=== PATIENT | female | born 1950 | race Caucasian/White ===

== ENCOUNTER 2016-09-27 01:35 | Emergency (ER) | payer OTHER ==
--- NOTE | 2016-09-27 01:39 | PDOC ---
History of Present Illness - General Chief Complaint: Pain, Acute Stated Complaint: BACK PAIN RADIATING DOWN BOTH LEGS Time Seen by Provider: 09/27/16 01:39 History Source: Patient Exam Limitations: No Limitations Past History - Past Medical History Allergies/Adverse Reactions: Allergies Allergy/AdvReac Type Severity Reaction Status Date / Time No Known Allergies Allergy Verified 09/27/16 01:37 Home Medications: Ambulatory Orders Aspirin [Aspirin EC] 81 mg PO DAILY 05/12/15 Cholecalciferol (Vitamin D3) [Vitamin D] 2,000 unit PO DAILY 05/12/15 Escitalopram Oxalate [Lexapro -] 10 mg PO DAILY 05/12/15 Levothyroxine [Synthroid -] 137 mcg PO DAILY 05/12/15 Metoprolol Succinate [Toprol Xl -] 50 mg PO HS 05/12/15 Metoprolol Succinate [Toprol Xl -] 75 mg PO AM 05/12/15 Rosuvastatin Calcium [Crestor] 10 mg PO HS 05/12/15 Tadalafil [Adcirca] 40 mg PO DAILY 05/12/15 Warfarin Sodium [Coumadin] 8 mg PO DAILY 05/12/15 Cancer: Yes (h/o hodgkin's dse tx with radiation) Cardiac Disorders: Yes Psychiatric Problems: Yes (anxiety) Thyroid Disease: Yes - Surgical History Cardiac Surgery: Yes (AORTIC VALVE REPLACEMENT 2006) - Psycho/Social/Smoking Cessation Hx Anxiety: No Suicidal Ideation: No Smoking History: Never smoked Have you smoked in the past 12 months: No Hx Alcohol Use: Yes (WINE) Drug/Substance Use Hx: No Substance Use Type: None *DC/Admit/Observation/Transfer - Discharge Dispostion Condition at time of disposition: Stable
[2016-09-27 01:45] VITALS: BP 118/67; PULSE 85; TEMP 98.9; BMI 26.5
[2016-09-27] MEDS ORDERED: ACETAMINOPHEN 325 MG TABLET (FP) ONE (01:47)
[2016-09-27] MEDS ORDERED: ACETAMINOPHEN 500 MG TABLET (FP) PO ONE (01:51)
--- NOTE | 2016-09-27 01:51 | PDOC ---
History of Present Illness - General Chief Complaint: Pain, Acute Stated Complaint: BACK PAIN RADIATING DOWN BOTH LEGS Time Seen by Provider: 09/27/16 01:39 History Source: Patient Exam Limitations: No Limitations - History of Present Illness Initial Comments: 09/27/16 01:53 This is a 65-year-old female who comes in complaining of low back pain 1 day. Patient said she has a history of spinal stenosis and has been in bed for the better part of a week for the influenza. Patient said she got up out of bed this evening and had the sensation that her back is went into a spasm and she had difficulty walking. Patient said she was unable to go upstairs unable to stand and unable to move secondary to the pain. However by the time patient arrived in the emergency room the pain and pretty much resolved and she was moving and feeling much better. Patient otherwise denies any loss or change in bowel or bladder habits. Patient denies any weakness of her legs. Her legs.PAST MEDICAL HISTORY: no significant history PAST SURGICAL HISTORY: no significant history FAMILY HISTORY: no pertinant history SOCIAL HISTORY: Pt lives with family and is employed. MEDICATIONS: reviewed ALLERGIES: As per nursing notes Review of Systems General: No fevers or chills, no weakness, no weight loss HEENT: No change in vision. No sore throat,. No ear pain CardioVascular: No chest pain or shortness of breath Respiratory:No cough, or wheezing. Gastrointestinal: no nausea, vomitting, diarrhea or constipation, No rectal bleeding Genitourinary: No dysuria, hematuria, or frequency Musculoskeletal: No joint or muscle pain or swelling Neurologic: No headache, vertigo, dizziness or loss of consciousness Psychiatric: nor depression Skin: No rashes or easy bruising Endocrine: no increased thirst or abnormal weight change Allergic: no skin or latex allergy All other systems reviewed and normal GENERAL: The patient is awake, alert, and fully oriented, in no acute distress. HEAD: Normal with no signs of trauma. EYES: Pupils equal, round and reactive to light, extraocular movements intact, sclera anicteric, conjunctiva clear. EXTREMITIES: Normal range of motion, no edema. BACK: There is some tenderness on palpation bilaterally lower back and over the sciatic notch bilaterally. There is full range of motion of the hips and legs with minimal back pain. Patient denies any low back pain on straight leg raising. Neurovascular is intact. NEUROLOGICAL: Normal speech, normal gait. PSYCH: Normal mood, normal affect. SKIN: Warm, Dry, normal turgor, no rashes or lesions noted. Assessment and plan: This is a 65-year-old female who comes in complaining of low back pain prior to arrival in the emergency room however by the time she got here her pain is reported much resolved. Patient was reassured that because of her spinal stenosis and she been laying in bed for approximately a week to that most likely she had moved wrong and that resulted in her pain. Patient was reassured that if it happens again to work through it and work it out with slow gentle movement and stretching. Patient was told she can take Tylenol and follow-up with her primary care doctor. Past History - Past Medical History Allergies/Adverse Reactions: Allergies Allergy/AdvReac Type Severity Reaction Status Date / Time No Known Allergies Allergy Verified 09/27/16 01:37 Home Medications: Ambulatory Orders Aspirin [Aspirin EC] 81 mg PO DAILY 05/12/15 Cholecalciferol (Vitamin D3) [Vitamin D] 2,000 unit PO DAILY 05/12/15 Escitalopram Oxalate [Lexapro -] 10 mg PO DAILY 05/12/15 Levothyroxine [Synthroid -] 137 mcg PO DAILY 05/12/15 Metoprolol Succinate [Toprol Xl -] 50 mg PO HS 05/12/15 Metoprolol Succinate [Toprol Xl -] 75 mg PO AM 05/12/15 Rosuvastatin Calcium [Crestor] 10 mg PO HS 05/12/15 Tadalafil [Adcirca] 40 mg PO DAILY 05/12/15 Warfarin Sodium [Coumadin] 8 mg PO DAILY 05/12/15 Cancer: Yes (h/o hodgkin's dse tx with radiation) Cardiac Disorders: Yes Psychiatric Problems: Yes (anxiety) Thyroid Disease: Yes - Surgical History Cardiac Surgery: Yes (AORTIC VALVE REPLACEMENT 2006) - Psycho/Social/Smoking Cessation Hx Anxiety: No Suicidal Ideation: No Smoking History: Never smoked Have you smoked in the past 12 months: No Information on smoking cessation initiated: No Hx Alcohol Use: Yes (WINE) Drug/Substance Use Hx: No Substance Use Type: None *Physical Exam - Vital Signs Last Vital Signs Temp Pulse Resp BP Pulse Ox 98.9 F 85 16 118/67 96 09/27/16 01:39 09/27/16 01:39 09/27/16 01:39 09/27/16 01:39 09/27/16 01:39 *DC/Admit/Observation/Transfer Diagnosis at time of Disposition: Low back pain radiating to both legs - Discharge Dispostion Disposition: HOME Condition at time of disposition: Stable Admit: No - Referrals Referrals: Ebony Walker MD [Primary Care Provider] - - Patient Instructions Printed Discharge Instructions: DI for Low Back Pain Additional Instructions: Call your DrTrent in the morning and talk to about being able to take any anti-inflammatories. Tell you that you were having low back pain and that you were in the emergency room and that the doctor recommended to take an anti- inflammatory by you were concerned because you're on Coumadin so I recommended that you talk to her doctor first. If her doctor says it is okay to take an anti-inflammatory then you should take ibuprofen 2 tablets 3 times a day with food don't take on an empty stomach do this for 1 week. In the meantime U can take acetaminophen 2 extra strength tablets every 4-6 hours as needed. If you're not better within 5-7 days follow-up with your doctor or an orthopedist. If he needed an orthopedist follow-up with Dr. Gibbs at Return to the emergency department immediately with ANY new, persistent or worsening symptoms. Continue any medications as previously prescribed by your physician. You should follow up with your primary doctor as soon as possible regarding today's emergency department visit. . Please make sure your doctor reviews the results of your emergency evaluation. Thank you for coming to the Emergency Department today for your care. It was a pleasure to see you today. Please note that your evaluation is INCOMPLETE until you follow-up with your doctor.
== END 2016-09-27 01:56 | disposition home or self-care (01) ==
LOC: FER 01:35
DX: M54.5 Low back pain (principal); M79.604 Pain in right leg; M79.605 Pain in left leg; R41.9 Unspecified symptoms and signs involving cognitive functions and awareness; Z95.2 Presence of prosthetic heart valve; Z79.01 Long term (current) use of anticoagulants
CPT/HCPCS: 99281-25

== ENCOUNTER 2019-03-26 08:26 | Day surgery (SDC) | payer OTHER ==
[2019-03-21 15:17] VITALS: BMI 24.7
[2019-03-26] MEDS ORDERED: BSS (NA/CA/MG/K) BALANCED SALT SOLUTION OPHTH SOLN 15 ML BOTTLE ONE (09:05)
[2019-03-26] MEDS ORDERED: TETRACAINE 0.5% OPHTH SOLN 2 ML BOTTLE ONE (09:05)
[2019-03-26] MEDS ORDERED: MIDAZOLAM HCL 2 MG/2 ML SINGLE DOSE VIAL ONE (09:05)
[2019-03-26] MEDS ORDERED: LIDOCAINE 1% P/F 10 MG/ML VIAL ONE (09:05)
[2019-03-26] MEDS ORDERED: CARBACHOL 0.01% INTRA-OCULAR 1.5 ML VIAL ONE (09:07)
[2019-03-26] MEDS ORDERED: NEO/POLYMYX B SULF/DEXAMETH OPHTHALMIC 5ML BOTTLE ONE (09:07)
[2019-03-26] MEDS: TROPICAMIDE 1% OPHTH SOLN 15 ML BOTTLE ONE ×3 (09:10→09:20)
[2019-03-26] MEDS: CYCLOPENTOLATE 2% OPHTH SOLN 2 ML BOTTLE ONE ×3 (09:10→09:20)
[2019-03-26] MEDS: CIPROFLOXACIN 0.3% EYE DROPS 5 ML BOTTLE ONE ×3 (09:10→09:20)
[2019-03-26] MEDS: PHENYLEPHRINE 2.5% OPHTH SOLN 15 ML BOTTLE ONE ×3 (09:10→09:20)
[2019-03-26 09:20] VITALS: TEMP 98
[2019-03-26 11:43] VITALS: BP 92/46; PULSE 78
--- NOTE | 2019-03-26 11:59 | OP ---
DATE OF OPERATION: 03/26/2019 OPERATIVE PROCEDURE: Lens phacoemulsification with posterior chamber intraocular lens placement left eye. PREOPERATIVE DIAGNOSIS: Visually significant cataract of left eye. POSTOPERATIVE DIAGNOSIS: Visually significant cataract of left eye. SURGEON: Romero Fulton M.D. ANESTHESIA: MAC ANESTHESIOLOGIST: PROCEDURE: The patient was brought to the operating room and placed under monitored anesthesia care by Anesthesia. A drop of Tetracaine was then placed over the left eye. The patient was then prepped and draped in the usual sterile manner. A speculum was then placed over the left eye. The eye was then well irrigated with copious amounts of BSS (balanced salt solution). The operating microscope was then moved into position. A paracentesis was performed using a 15 degree blade. At this point 0.5 mL of 1% preservative-free lidocaine was injected into the anterior chamber. Amvisc plus was then injected into the anterior chamber. A clear corneal incision was then formed using a 2.2 mm keratome. A capsulorrhexis was then performed in a continuous circular fashion beginning with a cystotome, completed with an Utratas forceps. Hydrodissection was then performed using BSS on a cannula. The phaco probe was then introduced through the corneal wound and the cataract was removed using the phaco chop technique. Approximately 3 seconds of absolute phaco time was used. The remaining cortex was then removed using irrigation and aspiration with an I/A probe. The capsule was then filled with regular Amvisc and the capsule was noted to be intact. A previously selected foldable posterior chamber intraocular lens was then injected into the capsule through the corneal wound using a lens injector. It was then dialed into position using a Sinskey hook. The Amvisc was then removed using irrigation and aspiration. Miostat was then injected through the paracentesis to constrict the pupil. The paracentesis and corneal wound were then hydrated and noted to be water tight. A drop of Maxitrol was then placed over the eye. The speculum was removed and clear shield was taped over the eye. The patient tolerated the procedure well and there were no surgical complications. The patient was asked to follow up in my office the next day. ROMERO FULTON M.D. IMELDA/[id number]
== END 2019-03-26 11:55 | disposition home or self-care (01) ==
LOC: FASU 08:26
PROVIDERS: ATTEND Ophthalmology
PROC: 08RK3JZ Replacement of Left Lens with Synthetic Substitute, Percutaneous Approach (ICD-10-PCS; principal; 2019-03-26 10:38)
DX: H26.8 Other specified cataract (principal)